=== PATIENT | female | born 1995 | race American Indian/Alaskan Native ===

== ENCOUNTER 2017-07-11 14:58 | Inpatient (IN) | payer OTHER ==
[2017-07-11] MEDS ORDERED: Piperacillin/Tazobact 3.375 GM in Sodium Chloride 0.9% 100 ML IVPB STA (15:21)
--- NOTE | 2017-07-11 15:22 | ED PDOC ---
HPI: Skin/Bite Injury Time Seen by Provider: 07/11/17 15:03 Chief Complaint (Nursing): Upper Extremity Problem/Injury Chief Complaint (Provider): multiple abscesses History Per: Patient History/Exam Limitations: no limitations Current Symptoms Are (Timing): Still Present Additional Complaint(s): Sheba Womack is a 21 year old female with previous medical history of recurrent axillary abscesses, who presents to the emergency department with a complaint of multiple bilateral axillary abscesses associated with worsening pain and intermittent drainage ongoing for 3-4 weeks. She denied fevers or chills. Patient had last I&D about 4 weeks ago but she still has pain and drainage. Patient has been under the care of Dr. Guerrero, plastic surgeon, for recurring abscesses. PMD: Dr. Giordano Past Medical History Reviewed: Historical Data, Nursing Documentation, Vital Signs Vital Signs: Last Vital Signs Temp 97.8 F 07/11/17 14:59 Pulse 67 07/11/17 14:59 Resp 18 07/11/17 14:59 BP 132/75 07/11/17 14:59 Pulse Ox 100 07/11/17 17:37 - Medical History PMH: No Chronic Diseases - Surgical History Other surgeries: right hand flexor tendon repair - Family History Family History: States: No Known Family Hx - Living Arrangements Living Arrangements: With Family - Social History Current smoker - smoking cessation education provided: No Alcohol: None Drugs: Denies - Home Medications Home Medications: Ambulatory Orders Medication Instructions Recorded No Known Home Med 07/11/17 - Allergies Allergies/Adverse Reactions: Allergies Allergy/AdvReac Type Severity Reaction Status Date / Time No Known Allergies Allergy Verified 07/11/17 14:59 Review of Systems ROS Statement: Except As Marked, All Systems Reviewed And Found Negative Constitutional: Negative for: Fever, Chills Skin: Positive for: Other (multiple abscesses to bilateral axillary regions) Physical Exam - Reviewed Nursing Documentation Reviewed: Yes Vital Signs Reviewed: Yes - Physical Exam Appears: Positive for: Well, Non-toxic, No Acute Distress Head Exam: Positive for: ATRAUMATIC, NORMAL INSPECTION, NORMOCEPHALIC Skin: Positive for: Normal Color. Negative for: Rash Eye Exam: Positive for: Normal appearance Cardiovascular/Chest: Positive for: Regular Rate, Rhythm Respiratory: Positive for: Normal Breath Sounds Extremity: Positive for: Normal ROM, Other (clusters of pustular lesions noted to bilateral axillary regions with no active bleeding or drainage, moderate tenderness to palpation bilaterally) Neurologic/Psych: Positive for: Alert, Oriented - Laboratory Results Result Diagrams: 07/11/17 16:30 07/11/17 16:30 Urine POC: Negative - ECG O2 Sat by Pulse Oximetry: 100 (RA) Pulse Ox Interpretation: Normal - Other Rad CXR X-Ray: Interpreted by Me, Viewed By Me X-Ray Interpretation: no acute finding Medical Decision Making Medical Decision Making: Initial Impression: Hidradenitis Suppurativa Initial Plan: * CBC * CMP * EKG * CXR * IV vancomycin and zosyn Patient with history of hidradenitis suppurative with multiple incisions and drainages over the past several months in outpatient setting. No symptomatic improvement after procedures. As per Dr. Guerrero, patient's plastic surgeon, patient is to be admitted to be taken to OR for further treatment. Patient is aware of and agrees with admission. Dr. Valencia, hospitalist at bedside for admission. Scribe Attestation: Documented by Sarika Pritchard, acting as a scribe for Honey Cade PA-C. Provider Scribe Attestation: All medical record entries made by the Scribe were at my direction and personally dictated by me. I have reviewed the chart and agree that the record accurately reflects my personal performance of the history, physical exam, medical decision making, and the department course for this patient. I have also personally directed, reviewed, and agree with the discharge instructions and disposition. Disposition - Clinical Impression Clinical Impression: Axillary hidradenitis suppurativa - Patient ED Disposition Is Patient to be Admitted: Yes - Disposition Disposition Time: 16:11 Condition: FAIR - Pt Status Changed To: Hospital Disposition Of: Inpatient - Admit Certification Admit to Inpatient:: After my assessment, the patient will require hospitalization for at least two midnights. This is because of the severity of symptoms shown, intensity of services needed, and/or the medical risk in this patient being treated as an outpatient. - POA Present On Arrival: None Results - Lab Results Lab Results: 07/11/17 07/11/17 16:30 16:30 WBC 6.3 RBC 4.75 Hgb 12.4 Hct 38.6 MCV 81.4 MCH 26.2 L MCHC 32.2 L RDW 14.8 H Plt Count 277 MPV 9.2 Neut % (Auto) 52.1 Lymph % (Auto) 37.9 Valencia % (Auto) 6.6 Eos % (Auto) 2.8 Baso % (Auto) 0.6 Neut # 3.3 Lymph # 2.4 Valencia # 0.4 Eos # 0.2 Baso # 0.0 Sodium 141 Potassium 4.4 Chloride 104 Carbon Dioxide 26 Anion Gap 15 BUN 10 Creatinine 0.7 Est GFR ( Amer) > 60 Est GFR (Non-Af Amer) > 60 Random Glucose 80 Calcium 9.7 Total Bilirubin 0.7 AST 42 H ALT 22 Alkaline Phosphatase 66 Total Protein 8.1 Albumin 4.4 Globulin 3.7 Albumin/Globulin Ratio 1.2
--- NOTE | 2017-07-11 15:52 | CP.PCM.HP ---
History of Present Illness - History of Present Illness History of Present Illness: CC: hidradenitis in both arms HPI: 21 year old female no past medical history presents after a several month history of bilateral hidradenitis with moderate sharp pain and tenderness, nonradiating, with drainage and recurrent. Patient has no other complaints, no fever, chills, n/v/c/d. ROS: per HPI, 12 systems reviewed and negative PMH: denies PSH: denies FH: HTN, DM SH: denies tobacco, ETOH, IVDU Meds: as below Allergies: NKDA Vitals: reviewed and currently stable Temp Pulse Resp BP Pulse Ox 97.8 F 67 18 132/75 100 07/11/17 14:59 07/11/17 14:59 07/11/17 14:59 07/11/17 14:59 07/11/17 16:01 Exam: GEN: WDWN, alert, cooperative HEENT: NCAT, PERRL, EOMI NECK: supple, no JVD, no lymphadenopathy CARDIAC: +S1S2 RRR LUNG: CTAB No WRR ABD: SOFT NT ND BSX4 NO MASSES NO HSM EXT: +pedal pulses, equal strength, 2 areas of cellulitic changes , one under each arm NEURO: AAOx3 SKIN warm, dry PSYCH normal mood, normal affect Labs: 07/11/17 16:30 Rads: Active Medications: Allergies No Known Allergies Allergy (Verified 07/11/17 14:59) Height & Weight Height 5 ft 5 in Weight 230 lb Start Date/Time Active Medications 07/11/17 15:21 Piperacillin/Tazobact [Zosyn] 3.375 gm Sodium Chloride 0.9% 100 ml IVPB STAT Vancomycin [Vancomycin Inj] 1 gm Sodium Chloride 0.9% 250 ml IVPB STAT 07/11/17 21:00 Vancomycin 1 GM/250ML NS Q12H Vancomycin [Vancomycin Inj] 1 gm Sodium Chloride 0.9% 250 ml IVPB Q12 Assessment and Plan: 21 year old female no past medical history presents after a several month history of bilateral hidradenitis with moderate sharp pain and tenderness, nonradiating, with drainage and recurrent. Patient has no other complaints, no fever, chills, n/v/c/d. Bilateral Hidradenitis Cont Vancomycin 1gm q12 hours VTE ppx patient ambulates Present on Admission - Present on Admission Any Indicators Present on Admission: No Past Patient History - Past Social History Alcohol: None Drugs: Denies Meds Allergies/Adverse Reactions: Allergies Allergy/AdvReac Type Severity Reaction Status Date / Time No Known Allergies Allergy Verified 07/11/17 14:59 Results - Vital Signs Recent Vital Signs: Last Vital Signs Temp 97.8 F 07/11/17 14:59 Pulse 67 07/11/17 14:59 Resp 18 07/11/17 14:59 BP 132/75 07/11/17 14:59 Pulse Ox 100 07/11/17 15:31 - Labs Result Diagrams: 07/11/17 16:30
[2017-07-11] MEDS ORDERED: Vancomycin 1 g Inj ONE (16:19)
[2017-07-11 16:43] LABS: BASO % 0.6 % (0.0-2.0); EOS # 0.2 K/uL (0.0-0.7); EOS % 2.8 % (0.0-4.0); HEMATOCRIT 38.6 % (34.0-47.0); LYMPH # 2.4 K/uL (1.0-4.3); LYMPH % 37.9 % (20.0-40.0); MEAN CELL VOLUME 81.4 fl (81.0-99.0); MEAN CORPUSCULAR HEMOGLOBIN 26.2 pg (27.0-31.0); MEAN CORPUSCULAR HGB CONC 32.2 g/dL (33.0-37.0); MEAN PLATELET VOLUME 9.2 fl (7.2-11.7); MONO # 0.4 K/uL (0.0-0.8); MONO % 6.6 % (0.0-10.0); NEUT # 3.3 K/uL (1.8-7.0); NEUT % 52.1 % (50.0-75.0); RED CELL DISTRIBUTION WIDTH 14.8 % (11.5-14.5); WHITE BLOOD COUNT 6.3 K/uL (4.8-10.8)
[2017-07-11 17:17] LABS: ALB/GLOB RATIO 1.2 (1.0-2.1); ALKALINE PHOSPHATASE 66 U/L (38-126); ALT/SGPT 22 U/L (9-52); AST/SGOT 42 U/L (14-36); BILIRUBIN,TOTAL 0.7 mg/dl (0.2-1.3); BLOOD UREA NITROGEN 10 mg/dl (7-17); CALCIUM 9.7 mg/dL (8.4-10.2); CARBON DIOXIDE 26 mmol/L (22-30); CHLORIDE 104 mmol/L (98-107); GFR AFRICAN-AMERICAN > 60; GLUCOSE,RANDOM 80 mg/dL (65-105); POTASSIUM 4.4 MMOL/L (3.6-5.0); SODIUM 141 mmol/l (132-148); TOTAL PROTEIN 8.1 G/DL (6.3-8.2)
--- NOTE | 2017-07-11 18:01 | RAD ---
HISTORY: admit COMPARISON: None available. TECHNIQUE: Chest PA and lateral FINDINGS: LUNGS: No focal consolidation. Please note that chest x-ray has limited sensitivity for the detection of pulmonary masses. PLEURA: No significant pleural effusion identified. No definite pneumothorax . CARDIOVASCULAR: The cardiomediastinal silhouette appears within normal limits of size. OSSEOUS STRUCTURES: No acute osseous abnormality identified. VISUALIZED UPPER ABDOMEN: Unremarkable. OTHER FINDINGS: None. IMPRESSION: No focal consolidation, significant pleural effusion, or definite pneumothorax identified.
[2017-07-11] MEDS ORDERED: Piperacillin/Tazobact 3.375 gm Inj IVPB ONE (18:19)
[2017-07-11] MEDS ORDERED: Potassium Ch 20mEq in D5-1/2NS 1,000 ML IV SCH (18:30)
[2017-07-11] MEDS: Dextrose 5%/0.45% NS 1,000 ML IV SCH (21:45)
[2017-07-12] MEDS: Dextrose 5%/0.45% NS 1,000 ML IV SCH (04:25)
[2017-07-12 06:20] LABS: HEMATOCRIT 35.4 % (34.0-47.0); MEAN CELL VOLUME 81.3 fl (81.0-99.0); MEAN CORPUSCULAR HEMOGLOBIN 26.5 pg (27.0-31.0); MEAN CORPUSCULAR HGB CONC 32.6 g/dL (33.0-37.0); RED CELL DISTRIBUTION WIDTH 14.6 % (11.5-14.5)
[2017-07-12 06:46] LABS: BLOOD UREA NITROGEN 12 mg/dl (7-17); CALCIUM 9.1 mg/dL (8.4-10.2); CARBON DIOXIDE 26 mmol/L (22-30); CHLORIDE 104 mmol/L (98-107); GFR AFRICAN-AMERICAN > 60; GLUCOSE,RANDOM 101 mg/dL (65-105); POTASSIUM 3.7 MMOL/L (3.6-5.0); SODIUM 141 mmol/l (132-148)
--- NOTE | 2017-07-12 11:50 | CP.PCM.PN ---
Subjective - Date & Time of Evaluation Date of Evaluation: 07/12/17 Time of Evaluation: 11:30 - Subjective Subjective: No fever denies CP no SOB no abd pain + Pain and tenderness axillary lesions with drainage Objective - Vital Signs/Intake and Output Vital Signs (last 24 hours): Temp Pulse Resp BP Pulse Ox 97.7 F 64 20 126/82 99 07/12/17 08:07 07/12/17 08:07 07/12/17 08:07 07/12/17 08:07 07/12/17 08:07 - Medications Medications: Current Medications Vancomycin HCl 1 gm/ Sodium (Chloride) 250 mls @ 166.667 mls/hr IVPB Q12 [facility] Last Admin: 07/12/17 11:39 Dose: 166.667 mls/hr Dextrose/Sodium Chloride (Dextrose 5%/0.45% Ns 1000 Ml) 1,000 mls @ 150 mls/hr IV .Q6H40M [facility] Stop: 07/12/17 21:41 Last Admin: 07/12/17 04:25 Dose: Not Given - Labs Labs: 07/12/17 05:35 07/12/17 05:35 - Constitutional Appears: No Acute Distress - Head Exam Head Exam: NORMAL INSPECTION, NORMOCEPHALIC - Eye Exam Eye Exam: EOMI, Normal appearance Pupil Exam: NORMAL ACCOMODATION - ENT Exam ENT Exam: Mucous Membranes Moist, Normal External Ear Exam - Neck Exam Neck Exam: Full ROM. absent: Meningismus - Respiratory Exam Respiratory Exam: Respiratory Distress, NORMAL BREATHING PATTERN - Cardiovascular Exam Cardiovascular Exam: REGULAR RHYTHM, +S1, +S2 - GI/Abdominal Exam GI & Abdominal Exam: Soft, Normal Bowel Sounds. absent: Tenderness - Extremities Exam Extremities Exam: Normal Capillary Refill. absent: Calf Tenderness, Pedal Edema Additional comments: Axilla: bilat tender lesions with drainage - Back Exam Back Exam: Full ROM, NORMAL INSPECTION. absent: CVA tenderness (L), CVA tenderness (R) - Neurological Exam Neurological Exam: Alert, Awake, CN II-XII Intact, Normal Gait, Oriented x3 Neuro motor strength exam: Left Upper Extremity: 5, Right Upper Extremity: 5, Left Lower Extremity: 5, Right Lower Extremity: 5 - Psychiatric Exam Psychiatric exam: Normal Affect, Normal Mood - Skin Skin Exam: Dry, Normal Color, Warm Assessment and Plan (1) Axillary hidradenitis suppurativa Status: Acute - Assessment and Plan (Free Text) Assessment: 21 y/o lady with Hx of bilateral axillary Hidradenitis, with hx of Incision and drainage done by her Senior Warehouse Clerk , came bec of worsening pain, swelling of lesions with drainage . (1) Axillary hidradenitis suppurativa Status: Acute Infected lesions with drainage , tenderness started on IV Zosyn and Vanco will consult Plastic Surgery for poss Incision and drainage as lesions worsening and looks infected
--- NOTE | 2017-07-12 12:53 | CARD ---
APPROVED REPORT EKG Measurement Heart [id number] <Conclusion> Sinus bradycardia with sinus arrhythmia Nonspecific ST and T wave abnormality Abnormal ECG
[2017-07-12] MEDS ORDERED: Lidocaine 1% Inj (20ml) ONE (16:20)
[2017-07-12] MEDS ORDERED: Bupivacaine 0.5% Inj(30mL) ONE (16:20)
[2017-07-12] MEDS ORDERED: Vecuronium 10 mg Inj ONE (16:57)
[2017-07-12] MEDS ORDERED: Propofol 10 mg/ml Inj (20 ML) ONE (16:57)
[2017-07-12] MEDS ORDERED: Midazolam 2 MG/2 ML VIAL ONE (16:57)
[2017-07-12] MEDS ORDERED: Succinylcholine 200 mg/10 ml Inj IV ONE (16:57)
[2017-07-12] MEDS ORDERED: Lidocaine 2% PF (10 ml) Amp ONE (17:07)
[2017-07-12] MEDS ORDERED: Lactated Ringer's 1,000 ML IV ONE (17:12)
[2017-07-12] MEDS ORDERED: ePHEDrine 50 mg/ml Inj ONE (17:36)
[2017-07-12] MEDS ORDERED: Neostigmine Methylsulfate 3mg/3ml Syringe IV ONE (18:13)
--- NOTE | 2017-07-12 18:37 | PCM.SURG1 ---
Surgeon's Initial Post Op Note - Surgeon's Notes Surgeon: Dr. Bowens Gang Supervisor Pipe Lines: Dr. Noble PGY3, Dr. Sun PGY2 Type of Anesthesia: General Endo Pre-Operative Diagnosis: bilateral axillary hiradenitis suppurativa Operative Findings: see op report Post-Operative Diagnosis: same Operation Performed: wide local excision of bilateral axillary hiradenitis suppurativa Specimen/Specimens Removed: right and left axillary flaps Estimated Blood Loss: EBL {In ML}: 50 Blood Products Given: N/A Drains Used: Wound Vac Post-Op Condition: Good Date of Surgery/Procedure: 07/12/17 Time of Surgery/Procedure: 18:37
[2017-07-12] MEDS: HYDROmorphone 0.5 mg/0.5 ml ISec IVP PRN ×3 (18:56→19:30)
[2017-07-12] MEDS: Lactated Ringer's 1,000 ML IV SCH (22:12)
[2017-07-13] MEDS: Oxycodone/Acetaminophen 5/325 mg Tab PO PRN ×3 (00:35→16:12)
[2017-07-13] MEDS: Lactated Ringer's 1,000 ML IV SCH (06:31)
[2017-07-13 07:49] LABS: BASO % 0.4 % (0.0-2.0); EOS % 0.4 % (0.0-4.0); HEMATOCRIT 32.4 % (34.0-47.0); LYMPH # 1.9 K/uL (1.0-4.3); LYMPH % 24.4 % (20.0-40.0); MEAN CELL VOLUME 80.4 fl (81.0-99.0); MEAN CORPUSCULAR HEMOGLOBIN 26.3 pg (27.0-31.0); MEAN CORPUSCULAR HGB CONC 32.7 g/dL (33.0-37.0); MEAN PLATELET VOLUME 9.8 fl (7.2-11.7); MONO # 0.4 K/uL (0.0-0.8); NEUT # 5.5 K/uL (1.8-7.0); NEUT % 69.8 % (50.0-75.0); RED CELL DISTRIBUTION WIDTH 14.5 % (11.5-14.5); WHITE BLOOD COUNT 7.9 K/uL (4.8-10.8)
[2017-07-13 08:00] LABS: ALB/GLOB RATIO 1.2 (1.0-2.1); ALKALINE PHOSPHATASE 49 U/L (38-126); ALT/SGPT 33 U/L (9-52); AST/SGOT 20 U/L (14-36); BILIRUBIN,TOTAL 0.4 mg/dl (0.2-1.3); BLOOD UREA NITROGEN 6 mg/dl (7-17); CALCIUM 8.8 mg/dL (8.4-10.2); CARBON DIOXIDE 25 mmol/L (22-30); CHLORIDE 103 mmol/L (98-107); GFR AFRICAN-AMERICAN > 60; GLUCOSE,RANDOM 93 mg/dL (65-105); POTASSIUM 3.9 MMOL/L (3.6-5.0); SODIUM 137 mmol/l (132-148); TOTAL PROTEIN 6.4 G/DL (6.3-8.2)
--- NOTE | 2017-07-13 10:27 | CP.PCM.PN ---
Subjective - Date & Time of Evaluation Date of Evaluation: 07/13/17 Time of Evaluation: 10:25 - Subjective Subjective: Surgery: Dr. Bowens Patient feeling well this am. She states she has some pain but controlled with po pain medication. She denies f/c. She states she has been OOB. Wound vacs remain on suction. Objective - Vital Signs/Intake and Output Vital Signs (last 24 hours): Temp Pulse Resp BP Pulse Ox 98.3 F 63 18 131/84 99 07/13/17 07:37 07/13/17 07:37 07/13/17 07:37 07/13/17 07:37 07/13/17 07:37 Intake and Output: 07/13/17 07/13/17 06:59 18:59 Intake Total 100 Balance 100 - Medications Medications: Current Medications Heparin Sodium (Porcine) (Heparin) 5,000 units SC Q12 [facility] PRN Reason: Protocol Last Admin: 07/13/17 09:16 Dose: 5,000 units Hydromorphone HCl (Dilaudid) 1 mg IVP Q4 PRN PRN Reason: Pain, severe (8-10) Hydromorphone HCl (Dilaudid) 0.5 mg IVP Q15M PRN PRN Reason: Pain, moderate (4-7) Last Admin: 07/12/17 19:30 Dose: 0.5 mg Vancomycin HCl 1 gm/ Sodium (Chloride) 250 mls @ 166.667 mls/hr IVPB Q12 [facility] Last Admin: 07/13/17 08:46 Dose: 166.667 mls/hr Lactated Ringer's (Lactated Ringer's) 1,000 mls @ 100 mls/hr IV .Q10H [facility] Last Admin: 07/13/17 06:31 Dose: 100 mls/hr Ondansetron HCl (Zofran Inj) 4 mg IVP Q6 PRN PRN Reason: Nausea/Vomiting Last Admin: 07/13/17 09:16 Dose: 4 mg Oxycodone/Acetaminophen (Percocet 5/325 Mg Tab) 2 tab PO Q4 PRN PRN Reason: Pain, moderate (4-7) Stop: 07/15/17 18:39 Last Admin: 07/13/17 08:12 Dose: 2 tab - Labs Labs: 07/13/17 05:30 07/13/17 05:30 - Constitutional Appears: Non-toxic, No Acute Distress - Head Exam Head Exam: ATRAUMATIC, NORMOCEPHALIC - Eye Exam Eye Exam: EOMI, Normal appearance - ENT Exam ENT Exam: Mucous Membranes Moist - Respiratory Exam Respiratory Exam: NORMAL BREATHING PATTERN. absent: Respiratory Distress - Cardiovascular Exam Cardiovascular Exam: REGULAR RHYTHM. absent: Tachycardia - Extremities Exam Additional comments: bilateral axilla w/ wound vacs in place good seal - Neurological Exam Neurological Exam: Alert, Awake - Skin Skin Exam: Dry, Normal Color, Warm Assessment and Plan - Assessment and Plan (Free Text) Assessment: 21 y/o female s/p bilateral axillary wide local excision hidradenitis suppuritiva with wound vac placement POD1 Plan: -cont wound vac to 125mmHg suction, do not take off suction to ambulate. Patient can ambulated with wound vacs on IV pole -heparin for DVT prophy -cont abx -pain control -reg diet -IS -will plan for wound closure on Saturday -f/u cultures from OR -further recs per Dr. Kwan Luong PGY3
--- NOTE | 2017-07-13 10:27 | CP.PCM.PN ---
Subjective - Date & Time of Evaluation Date of Evaluation: 07/13/17 Time of Evaluation: 09:30 - Subjective Subjective: No fever Pain controlled sl nausea no CP no SOB no abd pain Bilateral Axillary Wound Vac in place Objective - Vital Signs/Intake and Output Vital Signs (last 24 hours): Temp Pulse Resp BP Pulse Ox 98.3 F 63 18 131/84 99 07/13/17 07:37 07/13/17 07:37 07/13/17 07:37 07/13/17 07:37 07/13/17 07:37 Intake and Output: 07/13/17 07/13/17 06:59 18:59 Intake Total 100 Balance 100 - Medications Medications: Current Medications Heparin Sodium (Porcine) (Heparin) 5,000 units SC Q12 [facility] PRN Reason: Protocol Last Admin: 07/13/17 09:16 Dose: 5,000 units Hydromorphone HCl (Dilaudid) 1 mg IVP Q4 PRN PRN Reason: Pain, severe (8-10) Hydromorphone HCl (Dilaudid) 0.5 mg IVP Q15M PRN PRN Reason: Pain, moderate (4-7) Last Admin: 07/12/17 19:30 Dose: 0.5 mg Vancomycin HCl 1 gm/ Sodium (Chloride) 250 mls @ 166.667 mls/hr IVPB Q12 [facility] Last Admin: 07/13/17 08:46 Dose: 166.667 mls/hr Lactated Ringer's (Lactated Ringer's) 1,000 mls @ 100 mls/hr IV .Q10H [facility] Last Admin: 07/13/17 06:31 Dose: 100 mls/hr Ondansetron HCl (Zofran Inj) 4 mg IVP Q6 PRN PRN Reason: Nausea/Vomiting Last Admin: 07/13/17 09:16 Dose: 4 mg Oxycodone/Acetaminophen (Percocet 5/325 Mg Tab) 2 tab PO Q4 PRN PRN Reason: Pain, moderate (4-7) Stop: 07/15/17 18:39 Last Admin: 07/13/17 08:12 Dose: 2 tab - Labs Labs: 07/13/17 05:30 07/13/17 05:30 - Constitutional Appears: No Acute Distress - Head Exam Head Exam: NORMAL INSPECTION, NORMOCEPHALIC - Eye Exam Eye Exam: EOMI, Normal appearance Pupil Exam: NORMAL ACCOMODATION - ENT Exam ENT Exam: Mucous Membranes Moist, Normal External Ear Exam - Neck Exam Neck Exam: Full ROM. absent: Meningismus - Respiratory Exam Respiratory Exam: Respiratory Distress, NORMAL BREATHING PATTERN - Cardiovascular Exam Cardiovascular Exam: REGULAR RHYTHM, +S1, +S2 - GI/Abdominal Exam GI & Abdominal Exam: Soft, Normal Bowel Sounds. absent: Tenderness - Extremities Exam Extremities Exam: Normal Capillary Refill. absent: Calf Tenderness, Pedal Edema Additional comments: Axilla: bilateral Wound Vac - Back Exam Back Exam: Full ROM, NORMAL INSPECTION. absent: CVA tenderness (L), CVA tenderness (R) - Neurological Exam Neurological Exam: Alert, Awake, CN II-XII Intact, Normal Gait, Oriented x3 Neuro motor strength exam: Left Upper Extremity: 5, Right Upper Extremity: 5, Left Lower Extremity: 5, Right Lower Extremity: 5 - Psychiatric Exam Psychiatric exam: Normal Affect, Normal Mood - Skin Skin Exam: Dry, Normal Color, Warm Assessment and Plan (1) Axillary hidradenitis suppurativa Status: Acute (2) DVT prophylaxis Status: Acute - Assessment and Plan (Free Text) Assessment: 21 y/o lady with Hx of bilateral axillary Hidradenitis, with hx of Incision and drainage done by her Recreation Facilities Supervisor , came bec of worsening pain, swelling of lesions with drainage . (1) Bilateral Axillary hidradenitis suppurativa with infection Status: Acute Infected axillary lesions with drainage , tenderness , swelling failed outpt tx by Dermatology started on IV Vanco Consulted Plastic Surgery as lesions worsening and looks infected Pt underwent Wide local excision and placement of Wound Vac bilaterally Wound c/s Plan for Wound Closure on Saturday 2. DVT proph Lovenox
[2017-07-14] MEDS: HYDROmorphone 0.5 mg/0.5 ml ISec IVP PRN ×2 (02:58→14:26)
--- NOTE | 2017-07-14 07:33 | CP.PCM.PN ---
Subjective - Date & Time of Evaluation Date of Evaluation: 07/14/17 Time of Evaluation: 07:30 - Subjective Subjective: Surgery: Dr. Bowens Patient doing well today. She has some discomfort in the axilla as well as shoulder but is relieved with pain medication. She reports ambulating OOB frequently. She is tolerating diet. Per nursing no acute events noted. Objective - Vital Signs/Intake and Output Vital Signs (last 24 hours): Temp Pulse Resp BP Pulse Ox 98.1 F 61 19 107/68 100 07/14/17 00:24 07/14/17 00:24 07/14/17 00:24 07/14/17 00:24 07/14/17 00:24 - Medications Medications: Current Medications Heparin Sodium (Porcine) (Heparin) 5,000 units SC Q12 [facility] PRN Reason: Protocol Last Admin: 07/13/17 21:30 Dose: 5,000 units Hydromorphone HCl (Dilaudid) 1 mg IVP Q4 PRN PRN Reason: Pain, severe (8-10) Last Admin: 07/14/17 02:58 Dose: 1 mg Hydromorphone HCl (Dilaudid) 0.5 mg IVP Q15M PRN PRN Reason: Pain, moderate (4-7) Last Admin: 07/12/17 19:30 Dose: 0.5 mg Vancomycin HCl 1 gm/ Sodium (Chloride) 250 mls @ 166.667 mls/hr IVPB Q12 [facility] Last Admin: 07/13/17 21:29 Dose: 166.667 mls/hr Ondansetron HCl (Zofran Inj) 4 mg IVP Q6 PRN PRN Reason: Nausea/Vomiting Last Admin: 07/13/17 18:44 Dose: 4 mg Oxycodone/Acetaminophen (Percocet 5/325 Mg Tab) 2 tab PO Q4 PRN PRN Reason: Pain, moderate (4-7) Stop: 07/15/17 18:39 Last Admin: 07/13/17 16:12 Dose: 2 tab - Labs Labs: 07/13/17 05:30 07/13/17 05:30 - Constitutional Appears: Non-toxic, No Acute Distress - Head Exam Head Exam: ATRAUMATIC, NORMOCEPHALIC - Eye Exam Eye Exam: EOMI, Normal appearance - ENT Exam ENT Exam: Mucous Membranes Moist - Respiratory Exam Respiratory Exam: NORMAL BREATHING PATTERN. absent: Respiratory Distress - Cardiovascular Exam Cardiovascular Exam: REGULAR RHYTHM. absent: Tachycardia - Extremities Exam Extremities Exam: Normal Inspection. absent: Calf Tenderness Additional comments: bilateral axilla wound vac in place, no leak. Output is about 100cc bilaterally. pressure 125mmHg - Neurological Exam Neurological Exam: Alert, Awake, Oriented x3 Assessment and Plan - Assessment and Plan (Free Text) Assessment: 21 y/o female s/p bilateral axillary wide local excision hidradenitis suppuritiva with wound vac placement POD2 Plan: -cont wound vac to 125mmHg suction, do not take off suction to ambulate. Patient can ambulated with wound vacs on IV pole -heparin for DVT prophy -cont abx -pain control -reg diet -IS -will plan for wound closure on Saturday -f/u cultures from OR -further recs per Dr. Kwan Luong PGY3
[2017-07-14] MEDS ORDERED: Enoxaparin 40 mg Syringe SC SCH (09:00)
--- NOTE | 2017-07-14 11:21 | CP.PCM.PN ---
Subjective - Date & Time of Evaluation Date of Evaluation: 07/14/17 Time of Evaluation: 11:00 - Subjective Subjective: No fever Axillary pain controlled complains of back pain- requesting for heat pads no CP no SOB no abd pain Wound Vac in place Objective - Vital Signs/Intake and Output Vital Signs (last 24 hours): Temp Pulse Resp BP Pulse Ox 98.2 F 67 20 120/81 100 07/14/17 07:33 07/14/17 07:33 07/14/17 07:33 07/14/17 07:33 07/14/17 07:33 - Medications Medications: Current Medications Heparin Sodium (Porcine) (Heparin) 5,000 units SC Q12 [facility] PRN Reason: Protocol Last Admin: 07/14/17 09:23 Dose: 5,000 units Hydromorphone HCl (Dilaudid) 1 mg IVP Q4 PRN PRN Reason: Pain, severe (8-10) Last Admin: 07/14/17 02:58 Dose: 1 mg Hydromorphone HCl (Dilaudid) 0.5 mg IVP Q15M PRN PRN Reason: Pain, moderate (4-7) Last Admin: 07/12/17 19:30 Dose: 0.5 mg Vancomycin HCl 1 gm/ Sodium (Chloride) 250 mls @ 166.667 mls/hr IVPB Q12 [facility] Last Admin: 07/14/17 09:22 Dose: 166.667 mls/hr Ondansetron HCl (Zofran Inj) 4 mg IVP Q6 PRN PRN Reason: Nausea/Vomiting Last Admin: 07/13/17 18:44 Dose: 4 mg Oxycodone/Acetaminophen (Percocet 5/325 Mg Tab) 2 tab PO Q4 PRN PRN Reason: Pain, moderate (4-7) Stop: 07/15/17 18:39 Last Admin: 07/13/17 16:12 Dose: 2 tab - Labs Labs: 07/13/17 05:30 07/13/17 05:30 - Constitutional Appears: No Acute Distress - Head Exam Head Exam: NORMAL INSPECTION, NORMOCEPHALIC - Eye Exam Eye Exam: EOMI, Normal appearance Pupil Exam: NORMAL ACCOMMODATION - ENT Exam ENT Exam: Mucous Membranes Moist, Normal External Ear Exam - Neck Exam Neck Exam: Full ROM. absent: Meningismus - Respiratory Exam Respiratory Exam: Respiratory Distress, NORMAL BREATHING PATTERN - Cardiovascular Exam Cardiovascular Exam: REGULAR RHYTHM, +S1, +S2 - GI/Abdominal Exam GI & Abdominal Exam: Soft, Normal Bowel Sounds. absent: Tenderness - Extremities Exam Extremities Exam: Normal Capillary Refill. absent: Calf Tenderness, Pedal Edema Additional comments: Axilla: bilateral Wound Vac - Back Exam Back Exam: Full ROM, NORMAL INSPECTION. absent: CVA tenderness (L), CVA tenderness (R) - Neurological Exam Neurological Exam: Alert, Awake, CN II-XII Intact, Normal Gait, Oriented x3 Neuro motor strength exam: Left Upper Extremity: 5, Right Upper Extremity: 5, Left Lower Extremity: 5, Right Lower Extremity: 5 - Psychiatric Exam Psychiatric exam: Normal Affect, Normal Mood - Skin Skin Exam: Dry, Normal Color, Warm Assessment and Plan (1) Axillary hidradenitis suppurativa Status: Acute (2) DVT prophylaxis Status: Acute - Assessment and Plan (Free Text) Assessment: 21 y/o lady with Hx of bilateral axillary Hidradenitis, with hx of Incision and drainage done by her Automotive Shop Foreman , came bec of worsening pain, swelling of lesions with drainage . (1) Bilateral Axillary hidradenitis suppurativa with infection Status: Acute Infected axillary lesions with drainage , tenderness , swelling failed outpt tx by Dermatology started on IV Vanco Consulted Plastic Surgery as lesions worsening and looks infected Pt underwent Wide local excision and placement of Wound Vac bilaterally Wound c/s pending Plan for Wound Closure on Saturday. DVT proph Lovenox
[2017-07-14] MEDS: Menthol/Methyl Salicylate Oinment TOP PRN ×2 (14:26→21:36)
[2017-07-15 07:05] LABS: BLOOD UREA NITROGEN 8 mg/dl (7-17); CALCIUM 9.3 mg/dL (8.4-10.2); CARBON DIOXIDE 27 mmol/L (22-30); CHLORIDE 103 mmol/L (98-107); GFR AFRICAN-AMERICAN > 60; GLUCOSE,RANDOM 82 mg/dL (65-105); POTASSIUM 3.9 MMOL/L (3.6-5.0); SODIUM 140 mmol/l (132-148)
[2017-07-15 07:51] LABS: BASO % 0.4 % (0.0-2.0); EOS # 0.3 K/uL (0.0-0.7); EOS % 3.8 % (0.0-4.0); HEMATOCRIT 34.9 % (34.0-47.0); LYMPH # 2.9 K/uL (1.0-4.3); LYMPH % 36.7 % (20.0-40.0); MEAN CELL VOLUME 82.1 fl (81.0-99.0); MEAN CORPUSCULAR HEMOGLOBIN 26.2 pg (27.0-31.0); MEAN PLATELET VOLUME 9.9 fl (7.2-11.7); MONO # 0.7 K/uL (0.0-0.8); MONO % 8.4 % (0.0-10.0); NEUT % 50.7 % (50.0-75.0); NRBC % 0.1 % (0.0-0.0); RED CELL DISTRIBUTION WIDTH 15.1 % (11.5-14.5); WHITE BLOOD COUNT 7.8 K/uL (4.8-10.8)
[2017-07-15] MEDS: Benzocaine/Menthol (Cepacol) Lozenge PO PRN (11:36)
--- NOTE | 2017-07-15 11:41 | CP.PCM.PN ---
Subjective - Date & Time of Evaluation Date of Evaluation: 07/15/17 Time of Evaluation: 11:38 - Subjective Subjective: Surgery Pt s&e. NAEON. pain controlled. Denies F/C/N/V/D/CP/SOB. + amb, + BM. Wound vac in place . No leak. Tolerating diet Objective - Vital Signs/Intake and Output Vital Signs (last 24 hours): Temp Pulse Resp BP Pulse Ox 98.6 F 91 H 20 119/82 98 07/15/17 07:19 07/15/17 07:19 07/15/17 07:19 07/15/17 07:19 07/15/17 07:19 - Medications Medications: Current Medications Benzocaine/Menthol (Cepacol Sore Throat) 1 yusef PO Q3 PRN PRN Reason: Sore Throat Last Admin: 07/15/17 11:36 Dose: 1 yusef Camphor/Menthol (Bengay) 1 applic TOP QID PRN PRN Reason: Pain, Mild (1-3) Last Admin: 07/14/17 21:36 Dose: 1 applic Heparin Sodium (Porcine) (Heparin) 5,000 units SC Q12 YUDITH PRN Reason: Protocol Last Admin: 07/15/17 11:35 Dose: 5,000 units Hydromorphone HCl (Dilaudid) 1 mg IVP Q4 PRN PRN Reason: Pain, severe (8-10) Last Admin: 07/14/17 14:26 Dose: 1 mg Hydromorphone HCl (Dilaudid) 0.5 mg IVP Q15M PRN PRN Reason: Pain, moderate (4-7) Last Admin: 07/12/17 19:30 Dose: 0.5 mg Vancomycin HCl 1 gm/ Sodium (Chloride) 250 mls @ 166.667 mls/hr IVPB Q12 YUDITH Last Admin: 07/15/17 08:49 Dose: 166.667 mls/hr Ondansetron HCl (Zofran Inj) 4 mg IVP Q6 PRN PRN Reason: Nausea/Vomiting Last Admin: 07/14/17 22:30 Dose: 4 mg Oxycodone/Acetaminophen (Percocet 5/325 Mg Tab) 2 tab PO Q4 PRN PRN Reason: Pain, moderate (4-7) Stop: 07/15/17 18:39 Last Admin: 07/13/17 16:12 Dose: 2 tab - Labs Labs: 07/15/17 04:50 07/15/17 04:50 - Constitutional Appears: No Acute Distress - Head Exam Head Exam: ATRAUMATIC, NORMAL INSPECTION, NORMOCEPHALIC - Eye Exam Eye Exam: EOMI, Normal appearance, PERRL Pupil Exam: NORMAL ACCOMODATION, PERRL - ENT Exam ENT Exam: Mucous Membranes Moist, Normal Exam - Neck Exam Neck Exam: Full ROM, Normal Inspection. absent: Lymphadenopathy - Respiratory Exam Respiratory Exam: Clear to Ausculation Bilateral, NORMAL BREATHING PATTERN - Cardiovascular Exam Cardiovascular Exam: REGULAR RHYTHM, +S1, +S2. absent: Murmur - GI/Abdominal Exam GI & Abdominal Exam: Soft, Normal Bowel Sounds. absent: Distended, Tenderness - Extremities Exam Extremities Exam: Full ROM, Normal Capillary Refill, Tenderness. absent: Joint Swelling, Normal Inspection, Pedal Edema Additional comments: b/l Axilla wound vac in place. No leak. TTP - Back Exam Back Exam: NORMAL INSPECTION - Neurological Exam Neurological Exam: Alert, Awake, CN II-XII Intact, Normal Gait, Oriented x3 - Psychiatric Exam Psychiatric exam: Normal Affect, Normal Mood - Skin Skin Exam: Dry, Intact, Normal Color, Warm Assessment and Plan - Assessment and Plan (Free Text) Assessment: 21 y/o female s/p bilateral axillary wide local excision hidradenitis suppuritiva with wound vac placement POD3 Plan: -cont wound vac to 125mmHg suction, do not take off suction to ambulate. Patient can ambulated with wound vacs on IV pole -heparin for DVT prophy -cont abx -pain control -reg diet -IS -will plan for wound closure on Saturday -f/u cultures from OR -further recs per Dr. Bowens
--- NOTE | 2017-07-15 13:38 | CP.PCM.PN ---
Subjective - Date & Time of Evaluation Date of Evaluation: 07/15/17 Time of Evaluation: 12:30 - Subjective Subjective: Patient seen and examined bedside. Feeling well. With pain to both axillary regions. Wound vacs in place. Hemodynamically stable, afebrile. Complains of throat and pain on the back part of her tongue. No acute issues overnight. Objective - Vital Signs/Intake and Output Vital Signs (last 24 hours): Temp Pulse Resp BP Pulse Ox 98.6 F 91 H 20 119/82 98 07/15/17 07:19 07/15/17 07:19 07/15/17 07:19 07/15/17 07:19 07/15/17 07:19 - Medications Medications: Current Medications Benzocaine/Menthol (Cepacol Sore Throat) 1 yusef PO Q3 PRN PRN Reason: Sore Throat Last Admin: 07/15/17 11:36 Dose: 1 yusef Camphor/Menthol (Bengay) 1 applic TOP QID PRN PRN Reason: Pain, Mild (1-3) Last Admin: 07/14/17 21:36 Dose: 1 applic Heparin Sodium (Porcine) (Heparin) 5,000 units SC Q12 YUDITH PRN Reason: Protocol Last Admin: 07/15/17 11:35 Dose: 5,000 units Hydromorphone HCl (Dilaudid) 1 mg IVP Q4 PRN PRN Reason: Pain, severe (8-10) Last Admin: 07/14/17 14:26 Dose: 1 mg Hydromorphone HCl (Dilaudid) 0.5 mg IVP Q15M PRN PRN Reason: Pain, moderate (4-7) Last Admin: 07/12/17 19:30 Dose: 0.5 mg Vancomycin HCl 1 gm/ Sodium (Chloride) 250 mls @ 166.667 mls/hr IVPB Q12 YUDITH Last Admin: 07/15/17 08:49 Dose: 166.667 mls/hr Ondansetron HCl (Zofran Inj) 4 mg IVP Q6 PRN PRN Reason: Nausea/Vomiting Last Admin: 07/14/17 22:30 Dose: 4 mg Oxycodone/Acetaminophen (Percocet 5/325 Mg Tab) 2 tab PO Q4 PRN PRN Reason: Pain, moderate (4-7) Stop: 07/15/17 18:39 Last Admin: 07/13/17 16:12 Dose: 2 tab - Labs Labs: 07/15/17 04:50 07/15/17 04:50 - Constitutional Appears: Non-toxic, No Acute Distress - Head Exam Head Exam: ATRAUMATIC, NORMAL INSPECTION, NORMOCEPHALIC - Eye Exam Eye Exam: EOMI, Normal appearance, PERRL Pupil Exam: NORMAL ACCOMODATION - ENT Exam ENT Exam: Mucous Membranes Moist, Normal Exam - Neck Exam Neck Exam: Full ROM, Normal Inspection - Respiratory Exam Respiratory Exam: Clear to Ausculation Bilateral, NORMAL BREATHING PATTERN. absent: Rales, Rhonchi, Wheezes - Cardiovascular Exam Cardiovascular Exam: REGULAR RHYTHM, RRR, +S1, +S2. absent: JVD - GI/Abdominal Exam GI & Abdominal Exam: Soft, Normal Bowel Sounds. absent: Distended, Guarding, Tenderness, Rebound - Extremities Exam Extremities Exam: Full ROM, Normal Capillary Refill, Normal Inspection. absent : Calf Tenderness, Pedal Edema Additional comments: bilateral axilla wound vacs in place tenderness with palpation - Back Exam Back Exam: NORMAL INSPECTION - Neurological Exam Neurological Exam: Alert, Awake, CN II-XII Intact, Oriented x3 - Psychiatric Exam Psychiatric exam: Normal Affect, Normal Mood - Skin Skin Exam: Dry, Normal Color, Warm Assessment and Plan - Assessment and Plan (Free Text) Assessment: 21 y/o lady with Hx of bilateral axillary Hidradenitis, with hx of Incision and drainage done by her Ball Racker , came because of worsening pain, swelling of lesions with drainage .s/p wide local excisiuon with wound vac placement . On IV antibiotics. (1) Bilateral Axillary hidradenitis suppurativa with infection Acute Infected axillary lesions with drainage , tenderness , swelling failed outpt tx by Dermatology started on IV Vanco Consulted Plastic Surgery as lesions worsening and looked infected Pt underwent Wide local excision and placement of Wound Vac bilaterally Wound c/s pending Plan for Wound Closure in AM Continue pain management Cepacol lozenges for throat pain 2. DVT proph Heparin Will hold AN dose
[2017-07-15] MEDS: Mag&Al/Simet/Diphen/Lido 237 ML KIT PO SCH ×2 (16:26→22:22)
[2017-07-15] MEDS: HYDROmorphone 0.5 mg/0.5 ml ISec IVP PRN (22:20)
[2017-07-16] MEDS: HYDROmorphone 0.5 mg/0.5 ml ISec IVP PRN ×4 (05:15→22:10)
[2017-07-16 06:18] LABS: BASO % 0.5 % (0.0-2.0); EOS # 0.4 K/uL (0.0-0.7); EOS % 5.1 % (0.0-4.0); HEMATOCRIT 34.9 % (34.0-47.0); LYMPH # 2.6 K/uL (1.0-4.3); LYMPH % 35.5 % (20.0-40.0); MEAN CELL VOLUME 81.7 fl (81.0-99.0); MEAN CORPUSCULAR HEMOGLOBIN 26.1 pg (27.0-31.0); MEAN PLATELET VOLUME 9.7 fl (7.2-11.7); MONO # 0.6 K/uL (0.0-0.8); MONO % 8.4 % (0.0-10.0); NEUT # 3.8 K/uL (1.8-7.0); NEUT % 50.5 % (50.0-75.0); RED CELL DISTRIBUTION WIDTH 14.8 % (11.5-14.5); WHITE BLOOD COUNT 7.5 K/uL (4.8-10.8)
[2017-07-16 06:19] LABS: BLOOD UREA NITROGEN 8 mg/dl (7-17); CALCIUM 9.1 mg/dL (8.4-10.2); CARBON DIOXIDE 28 mmol/L (22-30); CHLORIDE 104 mmol/L (98-107); GFR AFRICAN-AMERICAN > 60; GLUCOSE,RANDOM 103 mg/dL (65-105); POTASSIUM 3.5 MMOL/L (3.6-5.0); SODIUM 141 mmol/l (132-148)
[2017-07-16] MEDS: Mag&Al/Simet/Diphen/Lido 237 ML KIT PO SCH ×4 (08:25→22:00)
[2017-07-16] MEDS ORDERED: Bupivacaine 0.5% 50 ML IJ ONE (08:40)
[2017-07-16] MEDS ORDERED: Lactated Ringer's 1,000 ML IV SCH (11:30)
--- NOTE | 2017-07-16 11:33 | CP.PCM.PN ---
Subjective - Date & Time of Evaluation Date of Evaluation: 07/16/17 Time of Evaluation: 12:00 - Subjective Subjective: Patient seen and examined bedside. Still with pain to bilateral axilla. Hemodynamically stable, afebrile. No acute issues overnight. NPO for OR today for wound closure Objective - Vital Signs/Intake and Output Vital Signs (last 24 hours): Temp Pulse Resp BP Pulse Ox 97.9 F 69 20 99/66 L 99 07/16/17 08:10 07/16/17 08:10 07/16/17 08:10 07/16/17 08:10 07/16/17 08:10 - Medications Medications: Current Medications Benzocaine/Menthol (Cepacol Sore Throat) 1 yusef PO Q3 PRN PRN Reason: Sore Throat Last Admin: 07/15/17 11:36 Dose: 1 yusef Camphor/Menthol (Bengay) 1 applic TOP QID PRN PRN Reason: Pain, Mild (1-3) Last Admin: 07/14/17 21:36 Dose: 1 applic Hydromorphone HCl (Dilaudid) 1 mg IVP Q4 PRN PRN Reason: Pain, severe (8-10) Last Admin: 07/16/17 05:15 Dose: 1 mg Vancomycin HCl 1 gm/ Sodium (Chloride) 250 mls @ 166.667 mls/hr IVPB Q12 YUDITH Last Admin: 07/16/17 08:24 Dose: 166.667 mls/hr Lactated Ringer's (Lactated Ringer's) 1,000 mls @ 100 mls/hr IV .Q10H YUDITH Ondansetron HCl (Zofran Inj) 4 mg IVP Q6 PRN PRN Reason: Nausea/Vomiting Last Admin: 07/14/17 22:30 Dose: 4 mg Saliva Substitute (First Magic Mouthwash) 5 ml PO QID YUDITH Last Admin: 07/16/17 08:25 Dose: Not Given - Labs Labs: 07/16/17 04:20 07/16/17 04:20 - Constitutional Appears: Well, Non-toxic, No Acute Distress - Head Exam Head Exam: ATRAUMATIC, NORMAL INSPECTION, NORMOCEPHALIC - Eye Exam Eye Exam: EOMI, Normal appearance, PERRL Pupil Exam: NORMAL ACCOMODATION - ENT Exam ENT Exam: Mucous Membranes Moist, Normal Exam - Neck Exam Neck Exam: Full ROM, Normal Inspection - Respiratory Exam Respiratory Exam: Clear to Ausculation Bilateral, NORMAL BREATHING PATTERN. absent: Rales, Rhonchi, Wheezes - Cardiovascular Exam Cardiovascular Exam: REGULAR RHYTHM, RRR, +S1, +S2. absent: JVD - GI/Abdominal Exam GI & Abdominal Exam: Soft, Normal Bowel Sounds. absent: Guarding, Tenderness, Rebound - Rectal Exam Rectal Exam: Deferred - Extremities Exam Extremities Exam: Full ROM, Normal Capillary Refill, Normal Inspection. absent : Pedal Edema Additional comments: bilateral axilla wound vac in place - Back Exam Back Exam: NORMAL INSPECTION - Neurological Exam Neurological Exam: Alert, Awake, CN II-XII Intact, Oriented x3 - Psychiatric Exam Psychiatric exam: Normal Affect, Normal Mood - Skin Skin Exam: Dry, Normal Color, Warm Assessment and Plan - Assessment and Plan (Free Text) Assessment: 21 y/o lady with Hx of bilateral axillary Hidradenitis, with hx of Incision and drainage done by her Garment Manufacturing Supervisor , came because of worsening pain, swelling of lesions with drainage .s/p wide local excisiuon with wound vac placement . On IV antibiotics. (1) Bilateral Axillary hidradenitis suppurativa with infection Acute Infected axillary lesions with drainage , tenderness , swelling failed outpt tx by Dermatology started on IV Vanco Consulted Plastic Surgery as lesions worsening and looked infected Pt underwent Wide local excision and placement of Wound Vac bilaterally Wound c/s with gram negative mirtha . follow up identification and sensitivities Plan for Wound Closure today Continue pain management Cepacol lozenges for throat pain 2. DVT proph Heparin on hold for surgery
[2017-07-16] MEDS ORDERED: Lidocaine 1% Inj (20ml) ONE (18:16)
[2017-07-16] MEDS ORDERED: Bupivacaine 0.5% Inj(30mL) ONE (18:16)
[2017-07-16] MEDS ORDERED: Midazolam 2 MG/2 ML VIAL ONE (18:50)
[2017-07-16] MEDS ORDERED: Propofol 10 mg/ml Inj (20 ML) ONE ×2 (18:50→20:02)
[2017-07-16] MEDS ORDERED: Lidocaine Hydrochloride 5 ML INJ ONE (18:50)
[2017-07-16] MEDS ORDERED: Oxycodone/Acetaminophen 5/325 mg Tab PO PRN ×2 (18:56)
[2017-07-16] MEDS ORDERED: Rocuronium 10 mg/ml (5 ml) ONE (18:59)
[2017-07-16] MEDS ORDERED: Lactated Ringer's 1,000 ML IV ONE ×2 (19:11→20:30)
[2017-07-16] MEDS ORDERED: Desflurane Inhalation Anesthetic Liq (240 ml) ONE (20:05)
[2017-07-16] MEDS ORDERED: Sevoflurane - Inhalation Anesthetic Liq (250 ml) ONE (20:05)
[2017-07-16] MEDS ORDERED: Bacitracin Ointment 30 GM TUBE ONE (20:15)
[2017-07-16] MEDS ORDERED: Dexamethasone 4 mg/1 ml IVP PRN (21:15)
--- NOTE | 2017-07-16 21:16 | PCM.SURG1 ---
Surgeon's Initial Post Op Note - Surgeon's Notes Surgeon: Dr. Bowens Filter Bed Placer: Dr. Noble PGY3, PGY1 Pre-Operative Diagnosis: Bilateral axillary Hidradenitis suppuritiva Operative Findings: see op note Post-Operative Diagnosis: same Operation Performed: bilateral axillary wound revision with flap closure Specimen/Specimens Removed: none Estimated Blood Loss: EBL {In ML}: 25 Drains Used: Celio Samayoa (x2) Post-Op Condition: Good Date of Surgery/Procedure: 07/16/17 Time of Surgery/Procedure: 19:00
[2017-07-17] MEDS: HYDROmorphone 0.5 mg/0.5 ml ISec IVP PRN ×2 (00:57→04:00)
[2017-07-17] MEDS: Benzocaine/Menthol (Cepacol) Lozenge PO PRN ×2 (04:12→07:42)
--- NOTE | 2017-07-17 06:59 | CP.PCM.PN ---
Subjective - Date & Time of Evaluation Date of Evaluation: 07/17/17 Time of Evaluation: 06:15 - Subjective Subjective: Surgery- Dr. Bowens Pt S&E at bedside this AM. Pt stated severe pain that woke her up in the middle of the night. Did not take percocet due to meds making pt nauseous. Pain is currently manageable. Denies F/C N/V/D CP/SOB. B/L axillary dressing C/D/I no strikethrough Objective - Vital Signs/Intake and Output Vital Signs (last 24 hours): Temp Pulse Resp BP Pulse Ox 98.7 F 88 20 119/82 97 07/17/17 01:30 07/17/17 01:30 07/17/17 01:30 07/17/17 01:30 07/17/17 01:30 Intake and Output: 07/16/17 07/17/17 18:59 06:59 Intake Total 1350 Balance 1350 - Medications Medications: Current Medications Acetaminophen (Tylenol 325mg Tab) 975 mg PO Q8 [facility] Benzocaine/Menthol (Cepacol Sore Throat) 1 yusef PO Q3 PRN PRN Reason: Sore Throat Last Admin: 07/17/17 04:12 Dose: 1 yusef Camphor/Menthol (Bengay) 1 applic TOP QID PRN PRN Reason: Pain, Mild (1-3) Last Admin: 07/14/17 21:36 Dose: 1 applic Heparin Sodium (Porcine) (Heparin) 5,000 units SC Q12 YUDITH PRN Reason: Protocol Hydromorphone HCl (Dilaudid) 0.5 mg IVP Q3 PRN PRN Reason: Pain, severe (8-10) Last Admin: 07/17/17 04:00 Dose: 0.5 mg Hydromorphone HCl (Dilaudid) 0.5 mg IVP Q5M PRN PRN Reason: Pain, moderate (4-7) Last Admin: 07/16/17 22:10 Dose: 0.5 mg Vancomycin HCl 1 gm/ Sodium (Chloride) 250 mls @ 166.667 mls/hr IVPB Q12 YUDITH Last Admin: 07/16/17 21:45 Dose: 100 mls Lactated Ringer's (Lactated Ringer's) 1,000 mls @ 100 mls/hr IV .Q10H YUDITH Last Admin: 07/16/17 12:18 Dose: Not Given Meperidine HCl (Demerol) 12.5 mg IVP Q5M PRN PRN Reason: Shivering/Rigor Ondansetron HCl (Zofran Inj) 4 mg IVP Q6 PRN PRN Reason: Nausea/Vomiting Last Admin: 07/14/17 22:30 Dose: 4 mg Saliva Substitute (First Magic Mouthwash) 5 ml PO QID [facility] Last Admin: 07/16/17 22:00 Dose: Not Given Tramadol HCl (Ultram) 50 mg PO Q4 PRN PRN Reason: Pain, moderate (4-7) - Labs Labs: 07/16/17 04:20 07/16/17 04:20 - Constitutional Appears: Non-toxic, No Acute Distress - Eye Exam Eye Exam: EOMI - ENT Exam ENT Exam: Mucous Membranes Moist - Cardiovascular Exam Cardiovascular Exam: +S1, +S2 - GI/Abdominal Exam GI & Abdominal Exam: Soft. absent: Distended, Rigid, Tenderness - Extremities Exam Additional comments: Bilateral axillary dressing C/D/I. 5/5 muscle strength & hot mix operator strength. Radial pulses 2+ - Neurological Exam Neurological Exam: Alert, Awake, Oriented x3 - Skin Skin Exam: Normal Color Assessment and Plan - Assessment and Plan (Free Text) Assessment: 21F w/ B/L axilla hidradenitis suppuritiva s/p bilateral axillary wound revision with flap closure POD #1 Plan: - regular diet - pain control - Abx - record b/l CASSIDY drainage - Pt cleared for discharge from surgical standpoint - follow up in one week w/ Dr. Bowens - further recs per Dr. Kwan Carranza PGY1
[2017-07-17 07:30] LABS: BASO % 0.4 % (0.0-2.0); EOS # 0.1 K/uL (0.0-0.7); EOS % 0.7 % (0.0-4.0); HEMATOCRIT 34.6 % (34.0-47.0); LYMPH # 1.3 K/uL (1.0-4.3); MEAN CELL VOLUME 81.8 fl (81.0-99.0); MEAN CORPUSCULAR HEMOGLOBIN 26.7 pg (27.0-31.0); MEAN CORPUSCULAR HGB CONC 32.6 g/dL (33.0-37.0); MONO # 0.8 K/uL (0.0-0.8); MONO % 7.3 % (0.0-10.0); NEUT # 8.5 K/uL (1.8-7.0); NEUT % 79.6 % (50.0-75.0); RED CELL DISTRIBUTION WIDTH 15.3 % (11.5-14.5); WHITE BLOOD COUNT 10.6 K/uL (4.8-10.8)
[2017-07-17 07:32] LABS: BLOOD UREA NITROGEN 5 mg/dl (7-17); CALCIUM 9.3 mg/dL (8.4-10.2); CARBON DIOXIDE 26 mmol/L (22-30); CHLORIDE 100 mmol/L (98-107); GFR AFRICAN-AMERICAN > 60; GLUCOSE,RANDOM 79 mg/dL (65-105); POTASSIUM 3.8 MMOL/L (3.6-5.0); SODIUM 140 mmol/l (132-148)
[2017-07-17] MEDS: Mag&Al/Simet/Diphen/Lido 237 ML KIT PO SCH ×4 (09:16→21:42)
--- NOTE | 2017-07-17 09:55 | CP.PCM.DIS ---
Provider - Provider Date of Admission: 07/11/17 15:28 Attending physician: Bety Valencia DO Hospital Course - Lab Results Lab Results: Micro Results 07/12/17 19:24 Axilla Gram Stain - Final 07/12/17 19:24 Axilla Wound Culture - Preliminary Gram Negative Robbie 07/12/17 06:00 Axilla Gram Stain - Final 07/12/17 06:00 Axilla Wound Culture - Preliminary Gram Positive Cocci Most Recent Lab Values WBC 10.6 K/uL (4.8-10.8) 07/17/17 06:50 RBC 4.23 Mil/uL (3.80-5.20) 07/17/17 06:50 Hgb 11.3 g/dL (12.0-16.0) L 07/17/17 06:50 Hct 34.6 % (34.0-47.0) 07/17/17 06:50 MCV 81.8 fl (81.0-99.0) 07/17/17 06:50 MCH 26.7 pg (27.0-31.0) L 07/17/17 06:50 MCHC 32.6 g/dL (33.0-37.0) L 07/17/17 06:50 RDW 15.3 % (11.5-14.5) H 07/17/17 06:50 Plt Count 230 K/uL (130-400) 07/17/17 06:50 MPV 10.0 fl (7.2-11.7) 07/17/17 06:50 Neut % (Auto) 79.6 % (50.0-75.0) H 07/17/17 06:50 Lymph % (Auto) 12.0 % (20.0-40.0) L 07/17/17 06:50 [place] % (Auto) 7.3 % (0.0-10.0) 07/17/17 06:50 Eos % (Auto) 0.7 % (0.0-4.0) 07/17/17 06:50 Baso % (Auto) 0.4 % (0.0-2.0) 07/17/17 06:50 Neut # 8.5 K/uL (1.8-7.0) H 07/17/17 06:50 Lymph # 1.3 K/uL (1.0-4.3) 07/17/17 06:50 [place] # 0.8 K/uL (0.0-0.8) 07/17/17 06:50 Eos # 0.1 K/uL (0.0-0.7) 07/17/17 06:50 Baso # 0.0 K/uL (0.0-0.2) 07/17/17 06:50 Sodium 140 mmol/l (132-148) 07/17/17 06:50 Potassium 3.8 MMOL/L (3.6-5.0) 07/17/17 06:50 Chloride 100 mmol/L (98-107) 07/17/17 06:50 Carbon Dioxide 26 mmol/L (22-30) 07/17/17 06:50 Anion Gap 17 (10-20) 07/17/17 06:50 BUN 5 mg/dl (7-17) L 07/17/17 06:50 Creatinine 0.7 mg/dL (0.7-1.2) 07/17/17 06:50 Est GFR ( Amer) > 60 07/17/17 06:50 Est GFR (Non-Af Amer) > 60 07/17/17 06:50 Random Glucose 79 mg/dL (65-105) 07/17/17 06:50 Calcium 9.3 mg/dL (8.4-10.2) 07/17/17 06:50 Total Bilirubin 0.4 mg/dl (0.2-1.3) 07/13/17 05:30 AST 20 U/L (14-36) 07/13/17 05:30 ALT 33 U/L (9-52) 07/13/17 05:30 Alkaline Phosphatase 49 U/L (38-126) 07/13/17 05:30 Total Protein 6.4 G/DL (6.3-8.2) 07/13/17 05:30 Albumin 3.5 g/dL (3.5-5.0) D 07/13/17 05:30 Globulin 2.9 gm/dL (2.2-3.9) 07/13/17 05:30 Albumin/Globulin Ratio 1.2 (1.0-2.1) 07/13/17 05:30 - Hospital Course Hospital Course: 21 y/o lady with Hx of bilateral axillary Hidradenitis, with hx of Incision and drainage done by her Analyst Programmer , came because of worsening pain, swelling of lesions with drainage .s/p wide local excisiuon with wound vac placement . On IV antibiotics. (1) Bilateral Axillary hidradenitis suppurativa with infection Acute Infected axillary lesions with drainage , tenderness , swelling failed outpt tx by Dermatology started on IV Vanco Consulted Plastic Surgery as lesions worsening and looked infected Pt underwent Wide local excision and placement of Wound Vac bilaterally Wound c/s with gram negative robbie . follow up identification and sensitivities Plan for Wound Closure today Continue pain management Cepacol lozenges for throat pain 2. DVT proph Heparin on hold for surgery Discharge Exam - Head Exam Head Exam: ATRAUMATIC, NORMAL INSPECTION, NORMOCEPHALIC Discharge Plan - Follow Up Plan Condition: FAIR Disposition: HOME/ ROUTINE
--- NOTE | 2017-07-17 15:58 | CP.PCM.PN ---
Subjective - Date & Time of Evaluation Date of Evaluation: 07/17/17 Time of Evaluation: 13:00 - Subjective Subjective: Patient seen and examined . Sitting in chair . Complains of significant pain to both axillas. JIMMY drains present bilaterally with serosanguinous output Hemodynamically stable, afebrile. No acute issues overnight Objective - Vital Signs/Intake and Output Vital Signs (last 24 hours): Temp Pulse Resp BP Pulse Ox 99.5 F 110 H 20 117/68 98 07/17/17 08:24 07/17/17 08:24 07/17/17 08:24 07/17/17 08:24 07/17/17 08:24 Intake and Output: 07/17/17 07/17/17 06:59 18:59 Intake Total 1350 Balance 1350 - Medications Medications: Current Medications Acetaminophen (Tylenol 325mg Tab) 975 mg PO Q8@0700,1500,2300 [facility] Last Admin: 07/17/17 14:50 Dose: Not Given Benzocaine/Menthol (Cepacol Sore Throat) 1 yusef PO Q3 PRN PRN Reason: Sore Throat Last Admin: 07/17/17 07:42 Dose: 1 yusef Camphor/Menthol (Bengay) 1 applic TOP QID PRN PRN Reason: Pain, Mild (1-3) Last Admin: 07/14/17 21:36 Dose: 1 applic Heparin Sodium (Porcine) (Heparin) 5,000 units SC Q12 YUDITH PRN Reason: Protocol Last Admin: 07/17/17 12:01 Dose: 5,000 units Hydromorphone HCl (Dilaudid) 0.5 mg IVP Q3 PRN PRN Reason: Pain, severe (8-10) Last Admin: 07/17/17 04:00 Dose: 0.5 mg Hydromorphone HCl (Dilaudid) 0.5 mg IVP Q5M PRN PRN Reason: Pain, moderate (4-7) Last Admin: 07/16/17 22:10 Dose: 0.5 mg Vancomycin HCl 1 gm/ Sodium (Chloride) 250 mls @ 166.667 mls/hr IVPB Q12 YUDITH Last Admin: 07/17/17 09:19 Dose: 166.667 mls/hr Lactated Ringer's (Lactated Ringer's) 1,000 mls @ 100 mls/hr IV .Q10H [facility] Last Admin: 07/16/17 12:18 Dose: Not Given Meperidine HCl (Demerol) 12.5 mg IVP Q5M PRN PRN Reason: Shivering/Rigor Ondansetron HCl (Zofran Inj) 4 mg IVP Q6 PRN PRN Reason: Nausea/Vomiting Last Admin: 07/14/17 22:30 Dose: 4 mg Saliva Substitute (First Magic Mouthwash) 5 ml PO QID [facility] Last Admin: 07/17/17 14:39 Dose: Not Given Tramadol HCl (Ultram) 50 mg PO Q4 PRN PRN Reason: Pain, moderate (4-7) Last Admin: 07/17/17 12:00 Dose: 50 mg - Labs Labs: 07/17/17 06:50 07/17/17 06:50 - Constitutional Appears: Non-toxic, No Acute Distress - Head Exam Head Exam: ATRAUMATIC, NORMAL INSPECTION, NORMOCEPHALIC - Eye Exam Eye Exam: EOMI, Normal appearance, PERRL Pupil Exam: NORMAL ACCOMODATION - ENT Exam ENT Exam: Mucous Membranes Moist, Normal Exam - Neck Exam Neck Exam: Full ROM, Normal Inspection - Respiratory Exam Respiratory Exam: Clear to Ausculation Bilateral, NORMAL BREATHING PATTERN. absent: Rales, Rhonchi, Wheezes - Cardiovascular Exam Cardiovascular Exam: REGULAR RHYTHM, RRR, +S1, +S2. absent: JVD - GI/Abdominal Exam GI & Abdominal Exam: Soft, Normal Bowel Sounds. absent: Distended, Guarding, Tenderness, Rebound - Rectal Exam Rectal Exam: Deferred - Extremities Exam Extremities Exam: Full ROM, Normal Capillary Refill, Normal Inspection Additional comments: bilateral axilla with dressing in place and JIMMY drains with serosanguinous fluid - Back Exam Back Exam: NORMAL INSPECTION - Neurological Exam Neurological Exam: Alert, Awake, CN II-XII Intact, Oriented x3 - Psychiatric Exam Psychiatric exam: Normal Affect - Skin Skin Exam: Dry, Intact, Normal Color, Warm Assessment and Plan - Assessment and Plan (Free Text) Assessment: 21 y/o lady with Hx of bilateral axillary Hidradenitis, with hx of Incision and drainage done by her Endorsement Clerk , came because of worsening pain, swelling of lesions with drainage .s/p wide local excision with wound vac placement and closure . On IV antibiotics.Jimmy drains present (1) Bilateral Axillary hidradenitis suppurativa with infection Acute Presented with Infected axillary lesions with drainage , tenderness , swelling failed outpt tx by Dermatology was initially started on IV Vanco and received for 5 days , until 07/17. cultures from axilla growing Proteus Mirabilis and Serratia marcescens sensitive to Cipro. Will d/c Vanco and start Cipro IV plastic surgery was consulted and patient underwent wide local excision and placement of Wound Vac bilaterally and on 07/16 wound closure. At present with JIMMY drains bilaterally with serosanguinous drainage. will keep drain in place Still with significant pain today. will start Tylenol # 3 for severe pain PRN and Ultram for moderate pain plan for d/c in Am with follow up with Dr. Bowens in 1 week 2. DVT proph ambulatpory Heparin
[2017-07-17 20:32] VITALS: RESP 20
[2017-07-17] MEDS ORDERED: Ciprofloxacin 400mg/200ml D5W 400 MG/200 ML BAG IVPB SCH (21:00)
[2017-07-17] MEDS: Acetaminophen-Codeine 300/30 mg Tab PO PRN (23:08)
[2017-07-18] MEDS: Acetaminophen-Codeine 300/30 mg Tab PO PRN (05:56)
[2017-07-18 06:04] LABS: HEMATOCRIT 31.5 % (34.0-47.0); MEAN CELL VOLUME 81.2 fl (81.0-99.0); MEAN CORPUSCULAR HEMOGLOBIN 26.3 pg (27.0-31.0); MEAN CORPUSCULAR HGB CONC 32.4 g/dL (33.0-37.0); RED CELL DISTRIBUTION WIDTH 14.9 % (11.5-14.5)
[2017-07-18 06:15] LABS: BLOOD UREA NITROGEN 4 mg/dl (7-17); CALCIUM 8.7 mg/dL (8.4-10.2); CARBON DIOXIDE 29 mmol/L (22-30); CHLORIDE 102 mmol/L (98-107); GFR AFRICAN-AMERICAN > 60; GLUCOSE,RANDOM 98 mg/dL (65-105); POTASSIUM 3.4 MMOL/L (3.6-5.0); SODIUM 139 mmol/l (132-148)
[2017-07-18 07:33] VITALS: BP 110/72; PULSE 97; TEMP 99.4; O2SAT 97
[2017-07-18] MEDS: Mag&Al/Simet/Diphen/Lido 237 ML KIT PO SCH ×2 (08:30→12:13)
--- NOTE | 2017-07-18 11:50 | CP.PCM.DIS ---
Provider - Provider Date of Admission: 07/11/17 15:28 Attending physician: Bety Valencia DO Consults: Plastic Surgery : Dr Whitney Bowens Time Spent in preparation of Discharge (in minutes): 30 Diagnosis - Discharge Diagnosis (1) Axillary hidradenitis suppurativa Status: Acute (2) DVT prophylaxis Status: Acute Hospital Course - Lab Results Lab Results: Micro Results 07/12/17 06:00 Axilla Gram Stain - Final 07/12/17 06:00 Axilla Wound Culture - Final Proteus Mirabilis 07/12/17 19:24 Axilla Gram Stain - Final 07/12/17 19:24 Axilla Wound Culture - Final Serratia Marcescens Most Recent Lab Values WBC 11.0 K/uL (4.8-10.8) H 07/18/17 05:40 RBC 3.88 Mil/uL (3.80-5.20) 07/18/17 05:40 Hgb 10.2 g/dL (12.0-16.0) L 07/18/17 05:40 Hct 31.5 % (34.0-47.0) L 07/18/17 05:40 MCV 81.2 fl (81.0-99.0) 07/18/17 05:40 MCH 26.3 pg (27.0-31.0) L 07/18/17 05:40 MCHC 32.4 g/dL (33.0-37.0) L 07/18/17 05:40 RDW 14.9 % (11.5-14.5) H 07/18/17 05:40 Plt Count 245 K/uL (130-400) 07/18/17 05:40 MPV 10.0 fl (7.2-11.7) 07/17/17 06:50 Neut % (Auto) 79.6 % (50.0-75.0) H 07/17/17 06:50 Lymph % (Auto) 12.0 % (20.0-40.0) L 07/17/17 06:50 [place] % (Auto) 7.3 % (0.0-10.0) 07/17/17 06:50 Eos % (Auto) 0.7 % (0.0-4.0) 07/17/17 06:50 Baso % (Auto) 0.4 % (0.0-2.0) 07/17/17 06:50 Neut # 8.5 K/uL (1.8-7.0) H 07/17/17 06:50 Lymph # 1.3 K/uL (1.0-4.3) 07/17/17 06:50 [place] # 0.8 K/uL (0.0-0.8) 07/17/17 06:50 Eos # 0.1 K/uL (0.0-0.7) 07/17/17 06:50 Baso # 0.0 K/uL (0.0-0.2) 07/17/17 06:50 Sodium 139 mmol/l (132-148) 07/18/17 05:40 Potassium 3.4 MMOL/L (3.6-5.0) L 07/18/17 05:40 Chloride 102 mmol/L (98-107) 07/18/17 05:40 Carbon Dioxide 29 mmol/L (22-30) 07/18/17 05:40 Anion Gap 11 (10-20) 07/18/17 05:40 BUN 4 mg/dl (7-17) L 07/18/17 05:40 Creatinine 0.7 mg/dL (0.7-1.2) 07/18/17 05:40 Est GFR ( Amer) > 60 07/18/17 05:40 Est GFR (Non-Af Amer) > 60 07/18/17 05:40 Random Glucose 98 mg/dL (65-105) 07/18/17 05:40 Calcium 8.7 mg/dL (8.4-10.2) 07/18/17 05:40 Total Bilirubin 0.4 mg/dl (0.2-1.3) 07/13/17 05:30 AST 20 U/L (14-36) 07/13/17 05:30 ALT 33 U/L (9-52) 07/13/17 05:30 Alkaline Phosphatase 49 U/L (38-126) 07/13/17 05:30 Total Protein 6.4 G/DL (6.3-8.2) 07/13/17 05:30 Albumin 3.5 g/dL (3.5-5.0) D 07/13/17 05:30 Globulin 2.9 gm/dL (2.2-3.9) 07/13/17 05:30 Albumin/Globulin Ratio 1.2 (1.0-2.1) 07/13/17 05:30 - Hospital Course Hospital Course: 21 y/o lady with Hx of bilateral axillary Hidradenitis, with hx of Incision and drainage done by her Ultrasound Applications Specialist , came because of worsening pain, swelling of lesions with drainage . Pt admitted and started on IV Vancomycin. Plastic Surgery consulted. Wide local excision with wound vac placement done followed by Wound closure and CASSIDY drain placement after a few days . (1) Bilateral Axillary hidradenitis suppurativa with infection Acute Presented with Infected axillary lesions with drainage , tenderness , swelling failed outpt tx by Dermatology was initially started on IV Vanco and received for 5 days , until 07/17. cultures from axilla growing Proteus Mirabilis and Serratia marcescens sensitive to Cipro. d/c Vanco and started Cipro IV plastic surgery was consulted and patient underwent wide local excision and placement of Wound Vac bilaterally and on 07/16 wound closure. At present with CASSIDY drains bilaterally with serosanguinous drainage. keep drain in place even on discharge Tylenol # 3 for severe pain PRN and Ultram for moderate pain Discharge home with CASSIDY drains , follow up with Dr. Bowens in 1 week cont PO Cipro 2. DVT proph ambulatory Heparin Discharge Exam - Head Exam Head Exam: ATRAUMATIC, NORMAL INSPECTION, NORMOCEPHALIC - Eye Exam Eye Exam: EOMI, Normal appearance, PERRL Pupil Exam: NORMAL ACCOMODATION - ENT Exam ENT Exam: Mucous Membranes Moist, Normal External Ear Exam - Neck Exam Neck exam: Full Rom - Respiratory Exam Respiratory Exam: NORMAL BREATHING PATTERN. absent: Respiratory Distress - Cardiovascular Exam Cardiovascular Exam: REGULAR RHYTHM, +S1, +S2 - GI/Abdominal Exam GI & Abdominal Exam: Normal Bowel Sounds, Soft. absent: Tenderness - Extremities Exam Extremities exam: normal capillary refill, pedal pulses present Additional comments: no calf tenderness bilateral axilla with dressing and CASSIDY drains - Back Exam Back exam: FULL ROM. absent: CVA tenderness (L), CVA tenderness (R), paraspinal tenderness, vertebral tenderness - Neurological Exam Neurological exam: Alert, CN II-XII Intact, Normal Gait, Oriented x3, Reflexes Normal - Psychiatric Exam Psychiatric exam: Normal Affect, Normal Mood - Skin Skin Exam: Dry, Normal Color, Warm Discharge Plan - Discharge Medications Prescriptions: Acetaminophen/Codeine [Tylenol/Codeine 300 MG/30 MG] 1 tab PO Q6 PRN #20 tab PRN Reason: Pain, Severe (8-10) Ciprofloxacin [Cipro] 500 mg PO Q12 #28 tab Docusate Sodium [Colace] 100 mg PO BID #30 capsule Lactobacillus Acidophilus [Bacid Acidophilus] 1 cap PO BID #30 cap traMADol [Ultram] 50 mg PO Q4 PRN #30 tab PRN Reason: Pain, Severe (8-10) - Follow Up Plan Condition: GOOD Disposition: HOME/ ROUTINE Instructions: Wound Infection (DC), Cel[place] Drain Care (DC), Celio- [place] Drain Care (GEN) Additional Instructions: follow up with Dr Bowens in 1 week keep CASSIDY drain, empty prn as instructed, record output ff up with PMD in 1 -2 wks keep dressing on and dry till outpt visit. only bath, do not shower reinforce with medipore tape if becomes loose Referrals: Whitney Bowens [Medical Doctor] -
--- NOTE | 2017-07-18 12:34 | CP.PCM.PN ---
Subjective - Date & Time of Evaluation Date of Evaluation: 07/18/17 Time of Evaluation: 09:30 - Subjective Subjective: Surgery- Dr. Bowens Pt S&E at bedside this AM. Left axilla, Pain is manageable with medication and ice. 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 Denies numbness tingling in the extremities. tolerating diet, ambulating. B/L axillary dressing C/D/I Objective - Vital Signs/Intake and Output Vital Signs (last 24 hours): Temp Pulse Resp BP Pulse Ox 99.4 F 97 H 20 110/72 97 07/18/17 09:00 07/18/17 09:00 07/18/17 09:00 07/18/17 09:00 07/18/17 09:00 Intake and Output: 07/18/17 07/18/17 06:59 18:59 Output Total 130 Balance -130 - Medications Medications: Current Medications Acetaminophen/Codeine Phosphate (Tylenol/Codeine 300 Mg/30 Mg) 1 tab PO Q6 PRN PRN Reason: Pain, severe (8-10) Last Admin: 07/18/17 05:56 Dose: 1 tab Benzocaine/Menthol (Cepacol Sore Throat) 1 yusef PO Q3 PRN PRN Reason: Sore Throat Last Admin: 07/17/17 07:42 Dose: 1 yusef Camphor/Menthol (Bengay) 1 applic TOP QID PRN PRN Reason: Pain, Mild (1-3) Last Admin: 07/14/17 21:36 Dose: 1 applic Ciprofloxacin (Cipro) 500 mg PO Q12 [facility] Last Admin: 07/18/17 08:30 Dose: 500 mg Heparin Sodium (Porcine) (Heparin) 5,000 units SC Q12 YUDITH PRN Reason: Protocol Last Admin: 07/18/17 12:09 Dose: 5,000 units Hydromorphone HCl (Dilaudid) 0.5 mg IVP Q5M PRN PRN Reason: Pain, moderate (4-7) Last Admin: 07/16/17 22:10 Dose: 0.5 mg Lactated Ringer's (Lactated Ringer's) 1,000 mls @ 100 mls/hr IV .Q10H [facility] Last Admin: 07/16/17 12:18 Dose: Not Given Meperidine HCl (Demerol) 12.5 mg IVP Q5M PRN PRN Reason: Shivering/Rigor Ondansetron HCl (Zofran Inj) 4 mg IVP Q6 PRN PRN Reason: Nausea/Vomiting Last Admin: 07/17/17 17:05 Dose: 4 mg Saliva Substitute (First Magic Mouthwash) 5 ml PO QID YUDITH Last Admin: 07/18/17 12:13 Dose: Not Given Tramadol HCl (Ultram) 50 mg PO Q4 PRN PRN Reason: Pain, moderate (4-7) Last Admin: 07/18/17 12:08 Dose: 50 mg - Labs Labs: 07/18/17 05:40 07/18/17 05:40 - Constitutional Appears: Non-toxic, No Acute Distress - Head Exam Head Exam: ATRAUMATIC - Eye Exam Eye Exam: EOMI - ENT Exam ENT Exam: Mucous Membranes Moist - Respiratory Exam Respiratory Exam: NORMAL BREATHING PATTERN. absent: Accessory Muscle Use, Rhonchi, Wheezes - Cardiovascular Exam Cardiovascular Exam: +S1, +S2 - GI/Abdominal Exam GI & Abdominal Exam: Soft. absent: Distended, Tenderness - Extremities Exam Additional comments: B/L Axillary dressing C/D/I Assessment and Plan - Assessment and Plan (Free Text) Assessment: 21F b/l axillary hidradenitis suppuritiva Plan: - pt cleared for discharge today - follow as outpatient with Dr. Bowens in one week - record drainage from each drain 2x/day - keep dressing on and dry till outpt visit. only bath, do not shower - reinforce with medipore tape if becomes loose - out patient antibiotics d/w Dr. Kwan Carranza PGY1
--- NOTE | 2017-07-29 22:41 | OP ---
PROCEDURE DATE: 07/16/2017 PREOPERATIVE DIAGNOSES: 1. A 130 cm2 left axillary open wound, status post debridement of infected axillary tissue. 2. A 130 cm2 open right axillary wound, status post debridement of infected right axillary tissue. POSTOPERATIVE DIAGNOSES: 1. A 130 cm2 left axillary open wound, status post debridement of infected axillary tissue. 2. A 130 cm2 open right axillary wound, status post debridement of infected right axillary tissue. PROCEDURE PERFORMED: 1. A 130 cm2 wound preparation of left axillary open wound for flap closure. 2. A 15 x 14 or 210 cm2 adjacent tissue transfer for left axilla wound closure. 3. Bilateral pulsatile lavage irrigation. 4. Exploration of bilateral axilla open wound. 5. A 130 cm2 of right axillary wound preparation for flap closure. 6. A 210 cm2 adjacent tissue transfer for right axillary wound closure. SURGEON: Whitney Bowens MD TYPE OF ANESTHESIA: General endotracheal tube anesthesia. ANESTHESIA ADMINISTERED BY: Cuauhtemoc Crandall MD ESTIMATED BLOOD LOSS: About 50 mL. DRAINS: 10 mm CASSIDY bilateral axillae. CONDITION: Stable. COMPLICATIONS: None. SPECIMENS: None. INDICATIONS FOR THE PROCEDURE: This is a 21-year-old female who I previously operated on 4 days prior. At that time, I did a radical debridement of bilateral infected axillary mass. The patient has grown out Serratia and different bacteria. She has been on appropriate IV antibiotics. Per the medical staff, the patient has been treated with wound VAC on the floor. She has remained stable. Today, the plan was to take her back to the operating room for second-stage washout, possible debridement and possible flap closure. Risks and benefits were fully discussed with the patient in the previous operation, reiterated today. DESCRIPTION OF PROCEDURE: The patient was taken to the operating room, placed under general endotracheal tube anesthesia. Perioperative antibiotics were confirmed. SCDs were placed on bilateral lower extremities. The wound VACs were removed from the bilateral axillae. The area was prepped and draped in the usual clean and sterile manner. We started the operation by first exploring both axillae for any residual necrotic tissue infection. We made the incision slightly larger to look. We did not find any. We then did pulsatile lavage irrigation, 2 liters of antibiotic irrigation to both axillae. We then scraped the wound with back of a Bovie scratch pad for the wound preparation of 130 cm2 in each axilla for flap closure. After doing the exploration and wound preparation and pulse lavage, we had to undermine the tissue that cannot be closed primarily because of such as wide defect. We undermined with electrocautery and scissor technique medially on the chest as well as laterally on the arm for several centimeters. After doing this, we were still not able to get primary closure. So, a back cut was made with #10 scalpel and the skin was reoriented with Romayor clamps. Underneath this, we closed some of the space in each axilla with 2-0 Vicryl sutures since there was a large amount of space to minimize drainage. After doing this, I left a 10 mm CASSIDY in the subcutaneous space of each axilla, taken out through a separate anterolateral chest incision and secured in place with a 2-0 silk suture. After reorienting the skin with Romayor clamps and using surgical marker to orient the skin, we used 0 Vicryl sutures to align and approximate the Farida's fascia in interrupted fashion, 2-0 Vicryl sutures to align and approximate the deep dermis in interrupted fashion, and a running 3-0 Monocryl suture up until the most inferior portion of the wound which we then stapled the epidermis with lobo. After doing this, there was minimal tension. The arms were kept out at 90 to 100 degrees abducted and there was minimal tension in the wound. We made sure to pay attention to any of the vital structures including the axillary lymph nodes and any nerve that we encountered. We did the same exact operation on the right side. We did the same adjacent tissue transfer 15 x 14, which is 210 cm2 in each side which included the areas of undermining in the back cut that we made. The right side was closed in the same manner. When we were done closing, we placed Bacitracin, Xeroform, 4 x 4s and ABDs. The patient then awoke from anesthesia and transferred to the recovery room in stable condition. FINDINGS: As above. Whitney Bowens MD
--- NOTE | 2017-07-29 23:46 | CON ---
DATE: 07/12/2017 EMERGENCY ROOM CONSULTATION SURGEON: Whitney Bowens MD HISTORY OF PRESENT ILLNESS: This is a 21-year-old female, who was admitted for bilateral axillary pain and drainage and was noted to have evidence of multiple areas of abscesses in the area. The patient was started on IV antibiotics and I have asked to consult her for possible debridement. PAST MEDICAL HISTORY: Significant for hidradenitis suppurativa. PAST SURGICAL HISTORY: Significant for multiple previous incision and drainages of bilateral axillae. ALLERGIES: THE PATIENT HAS KNOWN NO ALLERGIES. MEDICATIONS: The patient has been antibiotics intermittently. PHYSICAL EXAMINATION: Bilateral axillae revealed large areas of scarring and infection with drainage on both sides, with both extending into the medial chest. There were tender, erythematous areas of drained sinuses. There was some drainage as well and erythema consistent with cellulitis. ASSESSMENT AND PLAN: This is a 21-year-old female with bilateral infected axillary tissue. I spoke to the medical service and I recommended that after IV antibiotics, she go to the operating room for staged approach of radical excision of bilateral infected axillary tissue with delayed flap closure after the infection eradicated and treatment with a wound VAC in the interim. Risk and benefits were fully discussed with the patient, who agrees to proceed dictate separate operative report. Whitney Bowens MD
--- NOTE | 2017-07-30 00:19 | OP ---
PROCEDURE DATE: 07/12/2017 PREOPERATIVE DIAGNOSIS: Bilateral infected axillary tissue. POSTOPERATIVE DIAGNOSIS: Bilateral infected axillary tissue. PROCEDURE: 1. Radical excision of left axillary infective tissue mass. 2. A 130 sq cm of wound incorporation of left axilla open wound. 3. Radical excision of right axillary infected tissue mass. 4. Wound incorporation of 130 sq cm of right open axillary wound, which is a flap closure. 5. Placement of wound VAC to bilateral axilla. 6. Pulse lavage irrigation of bilateral axilla open wounds. SURGEON: Whitney Bowens M.D. TYPE OF ANESTHESIA: General endotracheal tube anesthesia.. ANESTHESIA ADMINISTERED BY: Dr. Larose. SPECIMENS: Bilateral axillary infected tissue as well as wound cultures on bilateral axillae. COMPLICATIONS: None. ESTIMATED BLOOD LOSS: About 100 mL. CONDITION: Stable. INDICATIONS FOR THE PROCEDURE: As follows. This is a 21-year-old female who I previously dictated an ER consultation and who presented with bilateral infected axillary tissues likely secondary to hidradenitis suppurativa. She is going to require staged treatment including today radical excision of bilateral axillary tissue and wound VAC placement followed by eventual local flap closure. Risks and benefits of the operation including but not limited to bleeding, hematoma, seroma, infection, lymphatic drainage, poor scarring, keloid scarring, wound dehiscence, motor nerve damage, sensory nerve damage, permanent paresthesias with cons of infection and hidradenitis with scar contractures, limitations in range of motion, a need for secondary operation and the need for physical therapy. We discussed and all questions were answered. DESCRIPTION OF PROCEDURE: The patient was taken to the operating room and placed under general anesthesia with endotracheal tube after SCD's were placed on bilateral lower extremities and perioperative antibiotics were confirmed. The left bilateral axilla and chest and arms were prepped and draped in usual clean and aseptic manner. We started the operation by first shaving the skin adherent from both axillae and then marking out the proposed line of excision. There was a 13 x 10 or 130 sq cm area of infected tender necrotic tissue with sinuses and tracts that were marked out with a surgical marker. We did the same operation on both sides. On the left side, we used a #10 scalpel to cut through the skin. After this, we used the electrocautery and then dissected all the way down to the Farida's fascia down to the deep muscle fascia. There was significant draining sinus tract in the mid portion of the axilla, which was carefully dissected out with Metzenbaum scissors. We then excised this 13 x 10 cm mass with electrocautery and sharp dissection. We made sure we preserved all vital structures. Once the mass was completely removed, we were left with a 13 x 10 cm open wound, which was not amenable to primary closure. Wound cultures were also sent since this was infected and there was no chance of closure today. We then did pulsatile lavage irrigation with antibiotic irrigation and we obtained hemostasis cautiously with electrocautery. It was now a 13 x 10 cm wound, which was scraped with the background Bovie scratch pad to stimulate granulation issue and prepare the wound for eventual flap closure. We then again reobtained hemostasis, after doing this, there was no evidence of any axillary or any injury to any vital structures. We then placed the wound VAC. We stapled it to the edges of the wound and set it to 125 mmHg. We then did the same exact operation on the right axilla, 13 x 10 or 130 sq cm infective tissue that was removed. The draining sinuses were not as deep on the right side as they were on the left side. Again, the same exact operation was performed on the right side as well as on the left side. After securing the VAC's, the patient was extubated and awoken from anesthesia and transferred to recovery room in stable condition. FINDINGS: As above. Whitney Bowens MD
== END 2017-07-18 14:42 | disposition home or self-care (01) | DRG 572 ==
LOC: H.ER 14:58 → H.ERHOLD 15:28 → H.MEDSURG1 22:13
PROVIDERS: ADMIT Student in an Organized Health Care Education/Training Program; ATTEND Student in an Organized Health Care Education/Training Program
PROC: 0JBD0ZZ Excision of Right Upper Arm Subcutaneous Tissue and Fascia, Open Approach (ICD-10-PCS; 2017-07-12)
PROC: 0JDF0ZZ Extraction of Left Upper Arm Subcutaneous Tissue and Fascia, Open Approach (ICD-10-PCS; 2017-07-12)
PROC: 0JDD0ZZ Extraction of Right Upper Arm Subcutaneous Tissue and Fascia, Open Approach (ICD-10-PCS; 2017-07-12)
PROC: 0JBF0ZZ Excision of Left Upper Arm Subcutaneous Tissue and Fascia, Open Approach (ICD-10-PCS; principal; 2017-07-12 14:30)
PROC: 0XQ Anatomical Regions, Upper Extremities, Repair (ICD-10-PCS; 2017-07-16)
PROC: 0JQF0ZZ Repair Left Upper Arm Subcutaneous Tissue and Fascia, Open Approach (ICD-10-PCS; 2017-07-16)
PROC: 0JDD0ZZ Extraction of Right Upper Arm Subcutaneous Tissue and Fascia, Open Approach (ICD-10-PCS; 2017-07-16)
PROC: 0JDF0ZZ Extraction of Left Upper Arm Subcutaneous Tissue and Fascia, Open Approach (ICD-10-PCS; 2017-07-16)
PROC: 0JQD0ZZ Repair Right Upper Arm Subcutaneous Tissue and Fascia, Open Approach (ICD-10-PCS; 2017-07-16)
PROC: 0XQ Anatomical Regions, Upper Extremities, Repair (ICD-10-PCS; 2017-07-16)
DX: L73.2 Hidradenitis suppurativa (principal); I10 Essential (primary) hypertension; B96.89 Other specified bacterial agents as the cause of diseases classified elsewhere; B96.4 Proteus (mirabilis) (morganii) as the cause of diseases classified elsewhere; E11.9 Type 2 diabetes mellitus without complications; L04.2 Acute lymphadenitis of upper limb